=== PATIENT | female | born 1995 | race Caucasian/White ===

== ENCOUNTER 2020-08-28 09:47 | Emergency (ER) | payer BC ==
[~2020-08-28] VITALS: Ht 157.5 cm; Wt 52.7 kg
[2020-08-28 09:53] VITALS: TEMP 98.1
[2020-08-28 10:27] LABS: BASO % 0.6 % (0.0-2.0); EOS % 0.4 % (0-4.0); GRAN # 5.5 (1.4-6.5); GRAN % 77.7 % (42.2-75.2); HEMOGLOBIN 12.6 g/dl (12.5-16.0); LYMPH % 13.6 % (20.0-51.0); MEAN CELL VOLUME 88 fl (80.0-100.0); MEAN CORPUSCULAR HEMOGLOBIN 29 pg (27.0-31.0); MEAN CORPUSCULAR HGB CONC 33 g/dl (33.0-37.0); MEAN PLATELET VOLUME 10.4 fl (7.4-10.4); MONO # 0.5 (0.1-0.6); MONO % 7.4 % (1.7-9.3); PLATELET COUNT 265 K/mm3 (130-400); RED BLOOD COUNT 4.34 M/mm3 (4.10-5.30)
[2020-08-28 10:38] LABS: ALANINE AMINOTRANSFERASE 15 U/L (4-34); ALBUMIN 4.4 gm/dL (3.5-5.0); ALKALINE PHOSPHATASE 51 U/L (50-136); ANION GAP 9 mmol/L (7-16); AST,SGOT 25 U/L (15-37); BILIRUBIN,TOTAL 0.6 mg/dL (0.0-1.0); BLOOD UREA NITROGEN 8 mg/dL (7-17); CALCIUM 9.3 mg/dL (8.4-10.2); CARBON DIOXIDE 23 mmol/L (22-30); CHLORIDE 103 mmol/L (98-107); CREATININE, serum 0.55 (0.52-1.25); GLUCOSE 102 mg/dL (74-106); LIPASE 56 U/L (23-300); POTASSIUM 3.8 mmol/L (3.4-5.0); SODIUM 135 mmol/L (137-145); TOTAL PROTEIN 7.5 gm/dL (6.4-8.2)
[2020-08-28 10:40] LABS: C-REACTIVE PROTEIN < 0.5 mg/dL (0.0-0.9)
[2020-08-28 11:12] LABS: COLLECTION METHOD CLEAN CATCH
[2020-08-28 11:33] LABS: MUCOUS Present /lpf; PH 5 (5-8); SQUAMOUS EPITHELIAL 0-2 /hpf; URINE APPEARANCE Hazy; URINE BACTERIA Moderate /hpf; URINE BILIRUBIN Negative (NEGATIVE); URINE BLOOD Negative (NEGATIVE); URINE COLOR Yellow; URINE GLUCOSE Negative (NEGATIVE); URINE KETONE 2+ (NEGATIVE); URINE LEUKOCYTE ESTERASE Negative (NEGATIVE); URINE NITRATE Negative (NEGATIVE); URINE PROTEIN(semi-quant) Negative (NEGATIVE); URINE RBC 0-2 /hpf; URINE UROBILINOGEN Negative (NEGATIVE)
[2020-08-28 12:13] VITALS: BP 129/79; PULSE 79
== END 2020-08-28 12:10 | disposition home or self-care (01) ==
LOC: COL.ER 09:47
PROVIDERS: Nurse Practitioner Primary Care
DX: O26.891 Other specified pregnancy related conditions, first trimester (principal); R10.9 Unspecified abdominal pain; R11.0 Nausea; Z3A.00 Weeks of gestation of pregnancy not specified
CPT/HCPCS: J1885; J2405; J7030

== ENCOUNTER 2021-04-13 22:58 | Inpatient (IN) | payer BC, MEDICAID ==
[~2021-04-13] VITALS: Ht 157.5 cm; Wt 63.6 kg
--- NOTE | 2021-04-13 23:00 | NUR ---
G1 at 38 weeks and 6 days arrives to unit with complaint of loss of fluid around 2200 and having contractions around 4-5 minutes apart. Pt reports feeling large gush of clear fluid at 2200. Denies bleeding, reports good movement. Pt denies headaches, blurry vision , or RUQ pain. Pt oriented to room, call light within reach, bed in low and locked position. US and toco explained and applied. Vital signs obtained. Admission assessment started. SVE 4/75/-2, vertex position. Grossly ruptured. Amnitrace positive.
[2021-04-13 23:30] VITALS: BP 135/84; PULSE 117; TEMP 98
[2021-04-14] VITALS (40 sets, daily range): BP systolic 91–134; BP diastolic 51–98; PULSE 78–150; TEMP 97.9–99.6
--- NOTE | 2021-04-14 00:15 | NUR ---
20G IV in right forearm after 5 attempts. Unable to obtain admission labs off IV start, lab to obtain. Lactated Ringers infusing to gravity. Consents reviewed and signed with patient and spouse. All questions answered.
[2021-04-14 00:42] LABS: BASO # 0.1 (0.0-0.2); BASO % 0.4 % (0.0-2.0); EOS # 0.1 (0.0-0.7); EOS % 0.5 % (0-4.0); GRAN # 9.6 (1.4-6.5); HEMOGLOBIN 11.7 g/dl (12.5-16.0); LYMPH # 1.6 (1.2-3.4); LYMPH % 12.6 % (20.0-51.0); MEAN CELL VOLUME 92 fl (80.0-100.0); MEAN CORPUSCULAR HEMOGLOBIN 30 pg (27.0-31.0); MEAN CORPUSCULAR HGB CONC 33 g/dl (33.0-37.0); MEAN PLATELET VOLUME 10.9 fl (7.4-10.4); MONO # 1.1 (0.1-0.6); PLATELET COUNT 258 K/mm3 (130-400); REDCELL DISTRIBUTION WIDTH-CV 15.1 % (11.5-14.5)
[2021-04-14 00:44] LABS: HEMATOCRIT 35.7 % (37.0-47.0)
--- NOTE | 2021-04-14 00:49 | NUR ---
0020 - Pt requesting epidural. Elisha Cuadra CRNA notified to come to bedside. 0040 - LAURA Lopez at bedside. Pt positioned to sitting on edge of bed. Epidural procedure, risks, and benefits reviewed with patient, verbalized understanding. 0049 - Single shot by LAURA Lopez. Pt denies any adverse reactions. 0053 - Pt positioned to right lateral for comfort. Reviewed safety precautions. Bed in low and locked position and call light within reach. See anesthesia record.
[2021-04-14] MEDS ORDERED: FERROUSAL325 MG PO (01:25)
[2021-04-14] MEDS ORDERED: PRENATAL TABLET PO (01:25)
--- NOTE | 2021-04-14 02:00 | NUR ---
REPORT FROM DIANA Logan RN AT THIS TIME
--- NOTE | 2021-04-14 05:10 | NUR ---
PT COMPLETE, WILL BEGIN PUSHING AT THIS TIME. ROLES NOTIFIED, SEE PHYS.NOTIFICATION.
--- NOTE | 2021-04-14 06:15 | NUR ---
BEDSIDE REPORT TO REGGIE FREITAS
--- NOTE | 2021-04-14 07:20 | NUR ---
Roles here for evaluation. C/+3. Room set up for delivery. Nursery nurse notified to come for delivery.
--- NOTE | 2021-04-14 07:27 | NUR ---
0727:55-Spontaneous vaginal delivery of head by . 0728: Spontaneous vaginal delivery of male by . 0739: Spontaneous vaginal delivery of placenta by . Pit bolus begun immediately following. 0740: Red elissa catheter by , minimal urine return noted. 2nd degree perineal laceration repaired by with 2-[address]-1, local anesthetic required, as patient feeling sharp pain on right side despite epidural block/bolus.
--- NOTE | 2021-04-14 10:00 | NUR ---
Assisted up to BR for first time post delivery. Steady gait noted. Unable to spontaneously void at this time. However, note, straight cathed following delivery for minimal urine return, and patient has not had much fluid oral intake. Encouraged increased po fluid intake. Lucho care provided. Mesh underwear, lucho pad, ice pack, and tucks applied. New gown provided. Awaiting cleaning of post room for transfer. Patient aware.
[2021-04-15 03:45] VITALS: BP 130/75; PULSE 98; TEMP 98.4
[2021-04-15 07:00] VITALS: BP 121/73; PULSE 102; TEMP 98.2
[2021-04-15] MEDS ORDERED: IBU600 MG PO (09:37)
[2021-04-15 16:37] VITALS: BP 137/87; PULSE 103; TEMP 98.8
[2021-04-15 20:00] VITALS: BP 128/72; PULSE 82; TEMP 98
[2021-04-16 03:00] VITALS: BP 118/69; PULSE 78; TEMP 98
[2021-04-16 10:00] VITALS: BP 116/66; PULSE 93; TEMP 99
== END 2021-04-16 10:43 | disposition home or self-care (01) | DRG 807 ==
LOC: LDRO 22:58 → LDR 23:18 → OB 23:19 → LDR 23:19 → LDRO 23:19 → LDR 23:20 → OB 04-14 10:30
PROVIDERS: ADMIT Obstetrics & Gynecology
PROC: 10E0XZZ Delivery of Products of Conception, External Approach (ICD-10-PCS; principal; 2021-04-14)
PROC: 0KQM0ZZ Repair Perineum Muscle, Open Approach (ICD-10-PCS; 2021-04-14)
DX: O70.1 Second degree perineal laceration during delivery (principal); Z37.0 Single live birth; Z3A.39 39 weeks gestation of pregnancy
CPT/HCPCS: J2590; J7120